=== PATIENT | female | born 1985 | race Caucasian/White ===

== ENCOUNTER → 2023-03-14 08:54 | Outpatient (CLI) | payer OTHER, SELFPAY ==
--- NOTE | ~2023-03-14 | MMUS_ITS ---
EXAMINATION: MM diagnostic daina BI w aide, US breast BI complete HISTORY: Palpable left breast lump TECHNIQUE: Additional 3-D tomosynthesis images of the breasts were performed and synthetic 2-D images were generated. CAD analysis was submitted and interpreted. High resolution bilateral complete breas t ultrasound was performed. COMPARISON: 02/09/2019 BREAST PARENCHYMAL COMPOSITION: The breasts are extremely dense, which lowers the sensitivity of mamm ography FINDINGS: MAMMOGRAPHIC FINDINGS: The breasts are stable. No new masses, calcifications or architectural distortion are identified to s uggest malignancy. ULTRASOUND: Complete bilateral US of all 4 quadrants of the breasts and retroareolar region was reviewed. Right breast: At 8:00, 3 cm from the nipple, there is a 6 mm cyst. Left breast: At 2:00, 7.5 cm from the nipple, there is an oval parallel oriented hypoechoic mass isis uring 6 mm with posterior acoustic enhancement and no internal vascularity, likely complicated cysts. At T10-11 o'clock, 8 cm from the nipple there is an oval circumscribed parallel oriented hypoechoic 9 mm mass with low level internal echoes, no posterior features and no internal vascularity, likely b enign. At 11:00, 6 cm from the nipple, there is an oval hypoechoic 5 mm mass, likely benign. At 11:00 , 6 cm from the nipple, there is a 5 mm cyst. IMPRESSION: 1. Probable benign left breast masses by ultrasound. No evidence for malignancy in the right breast. 2. Recommend 6 month follow-up Limited left breast ultrasound BI-RADS category 3, probably benign findings. Reviewed, dictated and finalized at location A. [employer]IT [employer] MANAGER IMPRESSION: 1. Probable benign left breast masses by ultrasound. No evidence for malignancy in the right breast. 2. Recommend 6 month follow-up Limited left breast ultrasound BI-RADS category 3, probably benign findings.
== END ==
PROVIDERS: PCP Nurse Practitioner; Visit Provider Nurse Practitioner
DX: N63.0 Unspecified lump in unspecified breast (principal); R92.8 Other abnormal and inconclusive findings on diagnostic imaging of breast
CPT/HCPCS: 76641; 77062; 77066; G0279